=== PATIENT | male | born 1990 | race Caucasian/White ===

== ENCOUNTER 2018-09-08 15:28 | Emergency (ER) | payer OTHER ==
[~2018-09-08] VITALS: Ht 170.2 cm; Wt 65.8 kg
[~2018-09-08 15:28] MED LIST: BENTYL20 MG PO; FLOMAX0.4 MG PO; NOHOMEMEDICATIONS; NORCO 5-325 TA1 EACH PO; PHENERGAN 25 MG25 M1 PO
[2018-09-08] MEDS ORDERED: ONDANSETRON HCL4 M2 PO (18:09)
[2018-09-08] MEDS ORDERED: NORCO 5-325 TA1 EACH PO (18:09)
[2018-09-08 18:34] VITALS: BP 128/83
== END 2018-09-08 18:40 | disposition home or self-care (01) ==
LOC: ER 15:28
DX: S06.0X0A Concussion without loss of consciousness, initial encounter (principal); M54.2 Cervicalgia; M25.512 Pain in left shoulder; M25.562 Pain in left knee; M25.522 Pain in left elbow; M25.572 Pain in left ankle and joints of left foot; Z87.442 Personal history of urinary calculi; W17.89XA Other fall from one level to another, initial encounter; Y93.89 Activity, other specified; Y92.89 Other specified places as the place of occurrence of the external cause; Y99.8 Other external cause status

== ENCOUNTER 2019-06-27 19:47 | Emergency (ER) | payer BC, OTHER ==
[~2019-06-27] VITALS: Ht 170.2 cm; Wt 63.5 kg
[~2019-06-27 19:47] MED LIST changes: +ONDANSETRON HCL4 M2 PO
[2019-06-27 20:44] LABS: ABSOLUTE NEUTROPHILS 4.8 thou/uL (1.4-8.2); BASOPHILS 0.6 % (0.0-2.0); EOSINOPHILS 0.5 % (0.0-3.0); HEMOGLOBIN 14.4 gm/dL (14.0-18.0); LYMPHOCYTES 13.2 % (24.0-44.0); MCH 33.2 pg (26.0-34.0); MCHC 33.6 g/dL (28.0-37.0); MONOCYTES 9.6 % (1.0-8.0); PLATELET COUNT 190 thou/uL (150-400); POLYS 76.1 % (36.0-66.0); RBC 4.34 mil/uL (4.50-6.00); RDW 13.1 % (10.5-14.5); WBC 6.3 thou/uL (4.0-11.0)
[2019-06-27 20:48] LABS: CALCIUM 8.9 mg/dL (8.5-10.1); POTASSIUM 3.6 mmol/L (3.5-5.1)
[2019-06-27 20:54] LABS: ALBUMIN 3.9 g/dL (3.4-5.0); DIRECT BILIRUBIN 0.3 mg/dL (<0.1-0.2); TOTAL BILIRUBIN 1.2 mg/dL (<0.1-1.0); TOTAL PROTEIN 7.3 g/dL (6.4-8.2)
[2019-06-27 21:02] LABS: APTT 24.6 Seconds (24.5-32.8); PROTIME 10.7 Seconds (9.3-11.4)
[2019-06-27 22:31] VITALS: BP 137/86
== END 2019-06-27 22:46 | disposition home or self-care (01) ==
LOC: ER 19:47
PROVIDERS: Emergency Medicine
DX: R56.9 Unspecified convulsions (principal); F10.239 Alcohol dependence with withdrawal, unspecified

== ENCOUNTER → 2019-08-10 | Outpatient (CLI) | payer BC, OTHER | LOC: MRI 11:14 | DX: R56.9 Unspecified convulsions (principal) ==